=== PATIENT | female | born 1985 | race African-American/Black ===

== ENCOUNTER 2016-10-04 12:00 | Emergency (ER) | payer OTHER ==
[~2016-10-04] VITALS: Ht 162.6 cm; Wt 97.5 kg
[~2016-10-04 12:00] MED LIST: CYCL-319 PO; IBUP800T25 PO; PRENAT PO
[2016-10-04 12:13] VITALS: Ht 162.6 cm; Wt 97.5 kg
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
[2016-10-04] MEDS ORDERED: HYDROCODONE/APAP (5/325) TAB PO ONE (12:30)
[2016-10-04] MEDS ORDERED: IBUPROFEN 800 MG TAB PO ONE (12:30)
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
[2016-10-04] MEDS ORDERED: NAPR-260 PO (13:46)
[2016-10-04] MEDS ORDERED: TRAM50TA2 PO (13:46)
[2016-10-04] MEDS ORDERED: CYCL-319 PO (13:46)
[2016-10-04 13:55] VITALS: BP 128/70; PULSE 74; RESP 18; TEMP 97.9
== END 2016-10-04 13:56 | disposition home or self-care (01) ==
LOC: FTE 12:00
DX: S19.9XXA Unspecified injury of neck, initial encounter (principal); E66.9 Obesity, unspecified; V49.40XA Driver injured in collision with unspecified motor vehicles in traffic accident, initial encounter; Z68.36 Body mass index [BMI] 36.0-36.9, adult
CPT/HCPCS: 72040; Z7502; Z7610

== ENCOUNTER 2017-03-13 09:48 | Emergency (ER) | END 2017-03-13 10:51 | disposition home or self-care (01) ==